=== PATIENT | female | born 1980 | race Hispanic/Latino ===

== ENCOUNTER 2020-02-05 04:53 | Outpatient (CLI) | payer OTHER, SELFPAY ==
[2020-02-05 17:14] LABS: SARS-CoV-2 MS2 Positive; SARS-CoV-2 N Gene Negative; SARS-CoV-2 S Gene Negative; SARS-CoV-2 orf1ab Negative
== END 2020-02-05 04:54 | disposition home or self-care (01) ==
LOC: ERS 04:53
PROVIDERS: ATTEND Student in an Organized Health Care Education/Training Program
DX: Z01.812 Encounter for preprocedural laboratory examination (principal); Z11.59 Encounter for screening for other viral diseases
CPT/HCPCS: 87635; U0003

== ENCOUNTER 2020-02-07 06:04 | Inpatient (IN) | payer OTHER, SELFPAY ==
[2020-02-07] MEDS: Lactated Ringer's 1,000 ML IV SCH ×4 (06:41→12:48)
[2020-02-07 06:43] VITALS: BMI 28.3
[2020-02-07] MEDS ORDERED: Ibuprofen 800 MG TAB PO PRN (07:13)
[2020-02-07] MEDS ORDERED: HYDROcodone/Acetaminophen 5/325 mg Tablet PO PRN ×3 (07:13→22:44)
[2020-02-07] MEDS ORDERED: Carboprost 250 MCG/ML AMP IM PRN (07:13)
[2020-02-07] MEDS ORDERED: Butorphanol Tartrate 1 MG/ML VIAL SLOW IVP PRN (07:13)
[2020-02-07] MEDS ORDERED: Misoprostol 200 MCG TAB PR PRN (07:13)
[2020-02-07] MEDS ORDERED: Promethazine HCl 25 MG/ML VIAL IM PRN ×3 (07:13→22:44)
[2020-02-07] MEDS ORDERED: Ondansetron PF 4 MG/2 ML Vial IVP PRN ×3 (07:13→22:44)
[2020-02-07] MEDS ORDERED: Acetaminophen 500 MG TAB PO PRN (07:13)
[2020-02-07] MEDS ORDERED: Methylergonovine 0.2 MG/ML VIAL IM PRN (07:13)
[2020-02-07] MEDS ORDERED: hydrALAZINE 20 MG/ML VIAL SLOW IVP PRN ×2 (07:13→22:44)
[2020-02-07] MEDS ORDERED: Diphenoxylate HCl/Atropine Tablet PO PRN (07:13)
[2020-02-07] MEDS ORDERED: Lidocaine 1% (PF) 30 ML VIAL SC PRN (07:13)
[2020-02-07] MEDS ORDERED: NS w/ Oxytocin 10 units 500 ML IV SCH (07:15)
[2020-02-07 07:29] LABS: Hemoglobin 12.8 g/dL (12.0-16.0); Mean Corpuscular Volume 94.3 fL (78.0-98.0); Platelet Count 230 thou/uL (130-400); RBC Distribution Width 11.2 % (11.5-14.5); Red Blood Cell (RBC) Count 3.88 mill/uL (4.20-5.40); White Blood Cell (WBC) Count 8.3 thou/uL (4.8-10.8)
[2020-02-07 08:12] LABS: Syphilis Antibody Nonreactive (Nonreactive); Syphilis Antibody Index 0.03 S/CO (<1.00 Non-Reactive)
[2020-02-07 08:13] LABS: HBSAg Index 0.18 S/CO (0-0.99); Hep B Surf Ag Non-Reactive S/CO (NonReactive)
[2020-02-07] MEDS ORDERED: Fentanyl 4 mcg/Bup 0.1% Cadd 100 ML ONE ×2 (08:18→16:50)
[2020-02-07] MEDS ORDERED: Lidocaine 2% MPF 10 ML AMP (For Epidural Use) ONE (09:13)
[2020-02-07] MEDS ORDERED: Bupivacaine PF 0.5% 30 ML VIAL ONE (09:13)
[2020-02-07] MEDS ORDERED: Bupivacaine/Epinephrine 0.25% 30 ML VIAL ONE (09:13)
[2020-02-07] MEDS ORDERED: NS / Oxytocin 40 units/1000ml 1,000 ML ONE (09:24)
[2020-02-07] MEDS ORDERED: Lidocaine 1% (PF) 30 ML VIAL ONE (09:24)
--- NOTE | 2020-02-07 09:41 | PDOC.LDHP ---
Labor and Delivery H&P Chief complaint: scheduled induction HPI: 39yo at 39w2d by LMP here for elective IOL. COVID neg. Some LOF since , unsure if ROM Current gestational age (weeks): 39 Due date: 02/12/20 Dating criteria: last menstrual period Grav: 3 Para: 1 Current complications: none Abnormal US findings: No Past Medical History: denies Current medications: pre- vitamins Previous surgical history: dilation and curettage Allergies/Adverse Reactions: Allergies Allergy/AdvReac Type Severity Reaction Status Date / Time No Known Drug Allergies Allergy Verified 02/07/20 06:47 Social history: none - Physical Exam Vital signs reviewed and normal: yes General: NAD Heart: RRR Lungs: CTAB Abdomen: gravid Extremeties: no edema FHT: category 1 Mier contractions every: 5min - Vaginal Exam cm dilated: 5 Effacement: 75% Station: -2 (arom clear) - OB Labs Blood type: O RH: positive Antibody Screen: negative HIV: negative RPR: negative HEPSAg: negative 1 hour GCT: negative GBS: negative Urine drug screen: negative Rubella: immune - Assessment L&D Assessment: elective induction at term - Plan Plan: admit to L&D, labor augmentation if indicated, informed consent obtained, anesthesia consult for pain management
[2020-02-07] MEDS ORDERED: Fentanyl 100 MCG/2 ML VIAL ONE (10:58)
[2020-02-07] MEDS ORDERED: Lactated Ringer's 500 ML IV PRN (12:46)
[2020-02-07] MEDS ORDERED: Acetaminophen 325 MG TAB PO PRN (12:46)
[2020-02-07] MEDS ORDERED: diphenhydrAMINE 50 MG/ML VIAL IVP PRN (12:46)
[2020-02-07] MEDS ORDERED: Naloxone HCl 0.4 mg/ml Vial IVP PRN ×2 (12:46)
[2020-02-07] MEDS ORDERED: EPHEDRINE 25 MG/5 ML SYRINGE SLOW IVP PRN (12:46)
[2020-02-07] MEDS ORDERED: Communication Order-Pharmacy FS SCH (13:00)
[2020-02-07] MEDS ORDERED: Fentanyl 4 mcg/Bupivacaine 0.1% Cassette 100 ML EPIDURAL SCH (13:00)
--- NOTE | 2020-02-07 20:10 | PDOC.OPDEL ---
OB Operative/Delivery Note Delivery Dr/Surgeon: Tiffany Assist: n/a Pre-Delivery Diagnosis: elective induction Procedure/Post Delivery Dx: spontaneous vaginal delivery Weeks gestation: 39 Anesthesia: epidural - Findings A Sex: male Weight: 7 lb 11 oz - 1 min: 8 - 5 min: 9 - Additional Findings/Plan Placenta delivered: spontaneous Repaired Obstetrical Laceration: none Estimated blood loss: 250cc Post delivery plan: routine recovery
[2020-02-07] MEDS: NS / Oxytocin 40 units/1000ml 1,000 ML IV PRN ×2 (21:14→21:39)
[2020-02-07] MEDS ORDERED: NS / Oxytocin 40 units/1000ml 1,000 ML IV SCH (22:44)
[2020-02-07] MEDS ORDERED: Bisacodyl 10 MG SUPP PR PRN (22:44)
[2020-02-07] MEDS ORDERED: diphenhydrAMINE 25 MG CAP PO PRN (22:44)
[2020-02-07] MEDS ORDERED: Lanolin Ointment 7 GM TUBE TOP PRN (22:44)
[2020-02-07] MEDS ORDERED: Benzocaine-Menthol 82.5 ML CAN TOP PRN (22:44)
[2020-02-07] MEDS ORDERED: Preparation H Ointment 28 GM TUBE PR PRN (22:44)
[2020-02-07] MEDS ORDERED: Milk Of Magnesia 30 ML UDCUP PO PRN (22:44)
[2020-02-08] MEDS: Ibuprofen 800 MG TAB PO SCH ×4 (00:10→21:36)
[2020-02-08] MEDS: Ferrous Sulfate 325 MG TAB PO SCH ×2 (07:17→19:18)
[2020-02-08] MEDS: Docusate Calcium (SURFAK) 240 MG CAP PO SCH ×2 (09:01→21:36)
[2020-02-08] MEDS: Prenatal Vitamin 1 TAB PO SCH (09:01)
[2020-02-08] MEDS ORDERED: Adacel (T-DAP) 0.5 ML SYRINGE IM ONE (22:44)
[2020-02-09] MEDS: Ibuprofen 800 MG TAB PO SCH (05:31)
--- NOTE | 2020-02-09 08:06 | PDOC.PP ---
Post Progress Note Post Day #: 2 PO intake tolerated: yes Flatus: yes Ambulation: yes Vital Signs (12 hours) Temp Pulse Resp BP Pulse Ox 02/08/20 20:15 98.8 F 61 16 122/79 98 Weight Weight 170 lb - Physical Examination General: NAD Respiratory: non-labored breathing Abdominal: no distention, appropriately TTP Fundus firm & at: umb-2 Extremities: negative homans (B) Neurological: no gross focal deficits Psychiatric: normal affect Result Diagrams: 02/07/20 07:19 Additional Labs: Post Labs Blood Type O POSITIVE 02/07/20 07:43 Hep Bs Antigen Non-Reactive S/CO (NonReactive) 02/07/20 07:19 - Assessment/Plan PPD2 s/p TSVD VSSAF Doing well pain controlled lochia < menses Rh pos RImm DC home FU 6w
[2020-02-09 08:07] VITALS: BP 126/82; TEMP 98
[2020-02-09] MEDS: Ferrous Sulfate 325 MG TAB PO SCH (10:00)
[2020-02-09] MEDS: Prenatal Vitamin 1 TAB PO SCH (10:00)
[2020-02-09] MEDS: Docusate Calcium (SURFAK) 240 MG CAP PO SCH (10:01)
== END 2020-02-09 12:25 | disposition home or self-care (01) | DRG 807 ==
LOC: L&D 06:04 → 3SW 23:49 → EDSTATUS 02-12 14:04
PROVIDERS: ADMIT Student in an Organized Health Care Education/Training Program; ATTEND Student in an Organized Health Care Education/Training Program
PROC: 10E0XZZ Delivery of Products of Conception, External Approach (ICD-10-PCS; principal; 2020-02-07)
PROC: 3E0P7VZ Introduction of Hormone into Female Reproductive, Via Natural or Artificial Opening (ICD-10-PCS; 2020-02-07)
PROC: 3E033VJ Introduction of Other Hormone into Peripheral Vein, Percutaneous Approach (ICD-10-PCS; 2020-02-07)
DX: O63.1 Prolonged second stage (of labor) (principal); Z37.0 Single live birth; Z11.59 Encounter for screening for other viral diseases; Z3A.39 39 weeks gestation of pregnancy
CPT/HCPCS: 36415; 85027; 86780; 86850; 86900; 86901; 87340; J2001; J2590; J3010; S0020